=== PATIENT | female | born 1955 | race Hispanic/Latino ===

== ENCOUNTER 2019-01-29 07:18 | Outpatient (CLI) | payer BC | END 2019-01-29 07:19 | disposition home or self-care (01) | LOC: C.PAT 07:18 | DX: D48.7 Neoplasm of uncertain behavior of other specified sites (principal) ==

== ENCOUNTER 2019-01-31 10:57 | Day surgery (SDC) | payer BC ==
[2019-01-29 07:33] VITALS: BMI 27.4
[2019-01-31] MEDS ORDERED: Bupivacaine 0.25% 20 ML INJ IJ ONE (14:29)
[2019-01-31] MEDS ORDERED: ceFAZolin 1 gm in NS 1 GM/100 ML BAG IVPB ONE (14:29)
[2019-01-31] MEDS ORDERED: Lidocaine/Epinephrine 1% 1:100000 10 ML IJ ONE (14:29)
[2019-01-31] MEDS ORDERED: Propofol 10 mg/ml Inj (20 ML) ONE (14:38)
[2019-01-31] MEDS ORDERED: Midazolam 2 MG/2 ML VIAL ONE (14:38)
[2019-01-31] MEDS ORDERED: HYDROmorphone 0.5 mg/0.5 ml ISec IVP PRN (15:09)
[2019-01-31] MEDS ORDERED: Oxycodone/Acetaminophen 5/325 mg Tab PO PRN (15:10)
[2019-01-31 15:55] VITALS: O2SAT 97
[2019-01-31 16:11] VITALS: RESP 18; TEMP 97.8
[2019-01-31 17:10] VITALS: BP 150/66; PULSE 66
--- NOTE | 2019-02-01 08:13 | OP ---
PROCEDURE DATE: 01/31/2019 PREOPERATIVE DIAGNOSIS: Mass of posterior neck. POSTOPERATIVE DIAGNOSIS: Mass of posterior neck. PROCEDURE PERFORMED: Wide and deep excision of mass of posterior neck with advancement flap closure. SURGEON: Jose Victoria MD ANESTHESIA: General. BLOOD LOSS: 30 mL. POSTOPERATIVE CONDITION: Stable. INDICATION FOR SURGERY: A 63-year-old female with a rapidly enlarging mass in the posterior neck. She will now undergo a wide and deep excision. DESCRIPTION OF PROCEDURE: The patient was taken to the operating room. General anesthesia was administered. A generous elliptical incision was made surrounding the mass in the posterior neck. It was dissected free into the fascia and removed. Bleeding was controlled using the Bovie. A larger neck blood vessel was repaired. Wound was irrigated with saline. Generous tissue flaps were raised. Counter incisions were made and an advancement flap closure was performed with multiple layers of Monocryl, subcuticular Monocryl, and skin clips. The patient tolerated the procedure well and returned to the recovery room in stable condition. Jose Victoria MD
== END 2019-01-31 16:45 | disposition home or self-care (01) ==
LOC: C.SDS 10:57
PROVIDERS: ATTEND Surgery
DX: L72.0 Epidermal cyst (principal)
CPT/HCPCS: 14040; 88307; J0690; J2250; J2704; J3010